=== PATIENT | female | born 1935 | race Caucasian/White ===

== ENCOUNTER → 2018-02-09 | Outpatient (CLI) | payer OTHER | END | disposition home or self-care (01) | LOC: MAMO-SONO 10:16 | DX: Z12.31 Encounter for screening mammogram for malignant neoplasm of breast (principal); Z87.898 Personal history of other specified conditions; N62 Hypertrophy of breast; N63.11 Unspecified lump in the right breast, upper outer quadrant ==

== ENCOUNTER 2018-10-28 08:28 | Outpatient (CLI) | payer OTHER | END 2018-10-28 17:00 | disposition home or self-care (01) | LOC: MAMO-SONO 08:28 | DX: N60.11 Diffuse cystic mastopathy of right breast (principal); N60.12 Diffuse cystic mastopathy of left breast ==

== ENCOUNTER → 2018-11-30 | Outpatient (CLI) | payer OTHER | END | disposition home or self-care (01) | LOC: RAD 501 10:16 | DX: M25.561 Pain in right knee (principal); M25.562 Pain in left knee ==

== ENCOUNTER 2019-02-11 08:11 | Outpatient (CLI) | payer OTHER | END 2019-02-11 08:18 | disposition home or self-care (01) | LOC: MAMO-SONO 08:11 | DX: N60.11 Diffuse cystic mastopathy of right breast (principal); N60.12 Diffuse cystic mastopathy of left breast ==

== ENCOUNTER → 2019-03-19 | Outpatient (CLI) | payer OTHER | END | disposition home or self-care (01) | LOC: SONOGRAMA 08:09 | DX: N63.11 Unspecified lump in the right breast, upper outer quadrant (principal); N63.21 Unspecified lump in the left breast, upper outer quadrant ==

== ENCOUNTER 2019-06-18 08:01 | Outpatient (CLI) | payer OTHER | END 2019-06-18 08:17 | disposition home or self-care (01) | LOC: NUCLEAR 08:01 | DX: I73.89 Other specified peripheral vascular diseases (principal); I73.9 Peripheral vascular disease, unspecified ==

== ENCOUNTER 2019-06-21 07:14 | Outpatient (CLI) | payer OTHER | END 2019-06-21 07:15 | disposition home or self-care (01) | LOC: NUCLEAR 07:14 | DX: I87.2 Venous insufficiency (chronic) (peripheral) (principal); I73.9 Peripheral vascular disease, unspecified ==

== ENCOUNTER → 2019-07-02 08:33 | Outpatient (CLI) | payer OTHER | END | disposition home or self-care (01) | LOC: LAB 08:33 | DX: I10 Essential (primary) hypertension (principal); D64.89 Other specified anemias; D68.8 Other specified coagulation defects; N39.0 Urinary tract infection, site not specified; E11.00 Type 2 diabetes mellitus with hyperosmolarity without nonketotic hyperglycemic-hyperosmolar coma (NKHHC); E04.1 Nontoxic single thyroid nodule; E78.2 Mixed hyperlipidemia ==

== ENCOUNTER 2019-07-16 06:50 | Day surgery (SDC) | payer OTHER ==
[~2019-07-16 06:50] MED LIST: ASPIR 8181 MG; NEURONTIN300 MG; NORVASC10 MG; PNEU16DI2; RELAFEN; SULFAZINE EC500 MG; VASOTEC2.5 MG
== END 2019-07-16 16:22 | disposition home or self-care (01) ==
LOC: CIR.AMB 06:50
DX: D05.11 Intraductal carcinoma in situ of right breast (principal)

== ENCOUNTER 2019-09-01 08:17 | Outpatient (CLI) | payer OTHER | END 2019-09-01 08:21 | disposition home or self-care (01) | LOC: TOM 08:17 | DX: D05.91 Unspecified type of carcinoma in situ of right breast (principal); D05.11 Intraductal carcinoma in situ of right breast; D05.81 Other specified type of carcinoma in situ of right breast; I10 Essential (primary) hypertension; I87.2 Venous insufficiency (chronic) (peripheral); M15.0 Primary generalized (osteo)arthritis | CPT/HCPCS: 71260; 74160; Q9965 ==

== ENCOUNTER 2019-12-30 09:53 | Outpatient (CLI) | payer OTHER | END 2019-12-30 10:52 | disposition home or self-care (01) | LOC: NUCLEAR 09:53 | DX: M81.0 Age-related osteoporosis without current pathological fracture (principal) ==

== ENCOUNTER 2020-01-04 09:04 | Outpatient (CLI) | payer OTHER | END 2020-01-04 10:00 | disposition home or self-care (01) | LOC: MAMO-SONO 09:04 | DX: Z12.31 Encounter for screening mammogram for malignant neoplasm of breast (principal); Z87.898 Personal history of other specified conditions; N63.11 Unspecified lump in the right breast, upper outer quadrant ==

== ENCOUNTER 2020-07-28 22:14 | Inpatient (IN) | payer OTHER ==
[~2020-07-28] VITALS: Ht 157.5 cm; Wt 78.5 kg
--- NOTE | 2020-07-28 22:50 | NUR ---
SE RECIBE PTE ALERTA Y ORIENTADA X 3 ESFERAS EN AMBULANCIA LA CUAL INDICA QUE PRESENTA DIFICULTAD RESPIRATORIA DESDE HOY. SE UBICA A PTE EN MONITOR CARDIACO Y OXIMETRIA DE PULSO. SE REALIZA EKG Y SE PRESENTA A .
--- NOTE | 2020-07-28 22:53 | NUR ---
PT ALERTA Y ORIENTADA X3 ESFERAS SE LE ORIENTA SOBRE TX Y REFIERE ENTEDER. SE DONNY MUESTRAS DE [place] CON TECNICAS ASEPTICAS. SE ADMINISTRAN MEDICAMENTOS E IVFLUIDS ORDENADOS. PT TOLERA TX. PT MANEJADA POR MS HARSH. MS SELENA REALZIA ABG Y TERAPIAS.
--- NOTE | 2020-07-28 23:31 | NUR ---
PACIENTE ALERTA Y ORIENTADA EN KAYLEN APARNA ESFERAS, PRESENTA PATRON RESPIRATORIO ALTERADO, TAQUIPNEA DE 33 RESP/MIN, ASISTIDA CON VM AL 50%, SPO2 98%, PACIENTE REFIERE "ME SIENTO MUCHO MEJOR", NO REFIERE DOLOR. CONECTADA A MONITOR CARDIACO PRESENTANDO TAQUICARDIA SINOSAL. CANALIZADA EN ANTEBRAZO LT PATENTE Y PRADEEP DE S/S DE FLEBITIS E INFILTRACION, RECIBIENDO 0.9% NSS A 120 ML/HR. TIENE UN JUNE SALINE LOCK EN MANO RT PATENTE Y PRADEEP DE S/S DE FLEBITIS E INFILTRACION. PENDIENTE RESULTADOS DE LABORATORIOS Y PLACA DE PECHO PORTABLE PARA RE EVALUACION MEDICA.
--- NOTE | 2020-07-29 01:12 | NUR ---
NO HAY ORDEN DE PLACA DE PECHO PORTABLE, SE REALIZA CT SCAN DE [facility].
--- NOTE | 2020-07-29 01:22 | NUR ---
SE ORIENTA A PACIENTE SOBRE TERAPIA RESPIRATORIA A ADMINISTRAR, REFIERE ENTENDER Y PROCEDE A REALIZAR DOS PUFF DE ALBUTEROL 90 MG.
--- NOTE | 2020-07-29 06:16 | NUR ---
545AM-ME COMUNICO CON BANCO DE [place] CON ADONAY PARA VERIFICAR EL STATUS DE LAS 3 UNIDADES DE PRBC PRA SER TRANSFUNDIDAS,ESTA ME INDICA QUE ME COMUNIQUE A LABORATORIO,PQ ESTA LAURA QUE YA LLEGARON,ME COMUNICO CON WEISS AL LABORATORIO Y ESTA ME INDICA QUE LA [place] LLEGO RUDY NO LE FUE NOTIFICADA AL PERSONAl y se notifica a RN GUALLPA.
--- NOTE | 2020-07-29 07:23 | NUR ---
07:10AM-SE RECIBE PTE DEL TURNO ANTERIOR ALERTA Y ORIENTADA X3, CON BUEN PATRON RESPIRATORIO Y SIGNOS VITALES ESTABLES. NO REFIERE DOLOR AL MOMENTO CON VENTURY MASK AL 50%, CONECTADA A MONITOR CARDIACO Y OXIMETRIA CONTINUA. CANALIZADA EN BRAZO NICK CON ANGIO #20 PATENTE Y PRADEEP DE EDEMA BAJANDO UN 0.9NSS A 120ML/HR. SE ROCHELLE TRANQUILA EN CAMA, CON BARANDAS ELEVADAS Y FRENOS COLOCADOS. SE MANTIENE BAJO OBSERVACION POR CAMBIOS EN TRATAMIENTO Y/O PTE.
[2020-07-31] MEDS ORDERED: NABUMETONE750 MG (10:58)
[2020-07-31] MEDS ORDERED: CELECOXIB200 MG (10:59)
[2020-07-31] MEDS ORDERED: VITAMIN C500 M1 (10:59)
[2020-07-31] MEDS ORDERED: RALOXIFENE HCL60 MG (10:59)
[2020-07-31] MEDS ORDERED: CITRACAL + D E1 EACH (10:59)
[2020-07-31] MEDS ORDERED: ATORVASTATIN CA20 MG (10:59)
[2020-07-31] MEDS ORDERED: FUROSEMIDE40 MG (10:59)
[2020-07-31] MEDS ORDERED: MUPIROCIN22 GM (11:00)
== END 2020-08-09 13:30 | disposition home or self-care (01) | DRG 177 ==
LOC: ER 22:14 → MEDJ 07-29 10:18
PROVIDERS: ADMIT Internal Medicine Cardiovascular Disease; ATTEND Internal Medicine Cardiovascular Disease
PROC: 4A033R1 Measurement of Arterial Saturation, Peripheral, Percutaneous Approach (ICD-10-PCS; principal; 2020-07-28)
PROC: B246ZZZ Ultrasonography of Right and Left Heart (ICD-10-PCS; 2020-07-29)
PROC: 3E0F7GC Introduction of Other Therapeutic Substance into Respiratory Tract, Via Natural or Artificial Opening (ICD-10-PCS; 2020-07-29)
PROC: 4A12X4Z Monitoring of Cardiac Electrical Activity, External Approach (ICD-10-PCS; 2020-07-30)
DX: U07.1 COVID-19 (principal); J12.89 Other viral pneumonia; D05.11 Intraductal carcinoma in situ of right breast; I10 Essential (primary) hypertension; I73.9 Peripheral vascular disease, unspecified; R09.02 Hypoxemia; R79.89 Other specified abnormal findings of blood chemistry

== ENCOUNTER → 2021-11-07 09:00 | Outpatient (CLI) | payer OTHER | END | disposition home or self-care (01) | LOC: PPH VACUNA 09:00 | PROVIDERS: ATTEND Emergency Medicine Pediatric Emergency Medicine | DX: Z23 Encounter for immunization (principal) ==

== ENCOUNTER → 2021-11-07 | Outpatient (CLI) | payer OTHER ==
[~2021-11-07] MED LIST changes: +ATORVASTATIN CA20 MG; +CELECOXIB200 MG; +CITRACAL + D E1 EACH; +FUROSEMIDE40 MG; +MUPIROCIN22 GM; +NABUMETONE750 MG; +RALOXIFENE HCL60 MG; +VITAMIN C500 M1
== END | disposition home or self-care (01) ==
LOC: MAMO-SONO 12:52
PROVIDERS: ATTEND Surgery
DX: N60.11 Diffuse cystic mastopathy of right breast (principal); N60.12 Diffuse cystic mastopathy of left breast; Z12.31 Encounter for screening mammogram for malignant neoplasm of breast; D05.11 Intraductal carcinoma in situ of right breast

== ENCOUNTER 2023-08-06 08:20 | Outpatient (CLI) | payer OTHER | END 2023-08-06 08:41 | disposition home or self-care (01) | LOC: MRI 08:20 | PROVIDERS: ATTEND Physical Medicine & Rehabilitation | DX: M54.50 Low back pain, unspecified (principal); Z88.0 Allergy status to penicillin | CPT/HCPCS: 72148 ==

== ENCOUNTER 2023-08-06 13:16 | Outpatient (CLI) | payer OTHER | END 2023-08-06 13:23 | disposition home or self-care (01) | LOC: NUCLEAR 13:16 | PROVIDERS: ATTEND Internal Medicine | DX: M81.0 Age-related osteoporosis without current pathological fracture (principal) ==